=== PATIENT | female | born 1995 | race Caucasian/White ===

== ENCOUNTER 2017-05-09 08:58 | Emergency (ER) | payer BC ==
[~2017-05-09] VITALS: Ht 157.4 cm; Wt 70.3 kg
[~2017-05-09 08:58] MED LIST: Motrin,Rufen800 MG PO
== END 2017-05-09 10:54 | disposition home or self-care (01) ==
LOC: ED 08:58
DX: O26.891 Other specified pregnancy related conditions, first trimester (principal); M54.16 Radiculopathy, lumbar region; Z3A.01 Less than 8 weeks gestation of pregnancy

== ENCOUNTER → 2017-08-02 | Outpatient (CLI) | payer BC | END | disposition home or self-care (01) | LOC: US 13:55 | DX: Z34.92 Encounter for supervision of normal pregnancy, unspecified, second trimester (principal); Z3A.20 20 weeks gestation of pregnancy ==

== ENCOUNTER 2017-09-19 23:38 | Emergency (ER) | payer BC ==
[~2017-09-19] VITALS: Ht 157.4 cm; Wt 77.1 kg
[2017-09-20] MEDS ORDERED: PIN-X250 MG PO (00:25)
== END 2017-09-20 00:41 | disposition home or self-care (01) ==
LOC: ED 23:38
DX: O26.893 Other specified pregnancy related conditions, third trimester (principal); B80 Enterobiasis

== ENCOUNTER 2021-03-22 18:35 | Emergency (ER) | payer BC, OTHER ==
[~2021-03-22] VITALS: Wt 79.8 kg
[~2021-03-22 18:35] MED LIST changes: +PIN-X250 MG PO
[2021-03-22] MEDS ORDERED: ZITHROMAX250 MG PO (18:55)
== END 2021-03-22 19:15 | disposition home or self-care (01) ==
LOC: ED 18:35
DX: J06.9 Acute upper respiratory infection, unspecified (principal); Z79.899 Other long term (current) drug therapy

== ENCOUNTER 2022-09-07 19:37 | Emergency (ER) | payer BC, OTHER ==
[~2022-09-07] VITALS: Ht 152.4 cm; Wt 83.0 kg
[~2022-09-07 19:37] MED LIST changes: +ZITHROMAX250 MG PO
[2022-09-07] MEDS ORDERED: WAL-ZYR10 MG PO (20:51)
[2022-09-07] MEDS ORDERED: KENALOG 0.025%15 GM T (20:51)
== END 2022-09-07 21:37 | disposition home or self-care (01) ==
LOC: ED 19:37
DX: L29.9 Pruritus, unspecified (principal)